=== PATIENT | male | born 1955 | race Caucasian/White ===

== ENCOUNTER 2016-09-20 19:56 | Inpatient (IN) | payer OTHER ==
[2016-09-20] MEDS ORDERED: Sodium Chloride 0.9% 1,000 ML IV ONE ×2 (21:02→22:18)
[2016-09-20] MEDS ORDERED: Pantoprazole 40 MG Vial IVPUSH ONE (21:03)
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
[2016-09-20] MEDS: Sodium Chloride 0.9% 10 ML Syringe FLUSH PRN (21:37)
[2016-09-20] MEDS ORDERED: Diatrizoate Meglumine/Diatrizoate Sodium 37% 120 ML Bottle PO ONE (22:21)
[2016-09-20] MEDS ORDERED: Sodium Chloride 0.9% 10 ML Syringe FLUSH ONE (22:21)
[2016-09-20] MEDS ORDERED: Iopamidol 612 MG/ML 150 ML Bottle IVPUSH ONE (22:21)
[2016-09-21] MEDS ORDERED: metroNIDAZOLE 500 MG Tab PO ONE (00:06)
[2016-09-21] MEDS ORDERED: Levofloxacin/Dextrose 5%-Water 750 MG in Premix Bag 1 BAG IV ONE (00:06)
[2016-09-21] MEDS ORDERED: Furosemide 40 MG/4 ML VIAL IVPUSH ONE (00:27)
[2016-09-21] MEDS ORDERED: Sodium Chloride 0.9% 500 ML IV SCH (01:30)
[2016-09-21] MEDS ORDERED: Furosemide 20 MG/2 ML VIAL IVPUSH ONE (05:15)
[2016-09-21] MEDS: HYDROmorphone 1 MG/ML Syringe IVPUSH PRN ×2 (05:55→17:06)
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
--- NOTE | 2016-09-21 09:49 | CT ---
CT chest Technique: Multiple axial sections through the chest were obtained. Intravenous contrast was utilized. Comparison: No previous CT study is available, previous chest x-ray performed earlier on the same day is available dated 09/20/16 (9:04 PM). Findings: Fractures are identified within the right third through ninth ribs. Ninth rib fracture is fractured in 2 places. Fracture shows mild displacement almost up to 1 rib length with several fractures. No left-sided rib fractures are identified. Moderate sized right sided pleural effusion is seen. Mild atelectasis on a compressive basis is seen adjacent to the pleural effusion. Small hiatal hernia is seen. Left lung is clear. No pneumothorax is identified. Mediastinum and hilar regions show no adenopathy or mass. No pericardial thickening is seen. Small amount of contrast reflux into the distal esophagus is seen. Reconstructed sagittal views show vertebral body heights to be maintained within the thoracic spine. Sagittal views of the sternum appear intact. Mildly displaced fracture seen within the right scapula showing mild displacement. Fracture occurs below the glenoid. Impression: 1. Multiple right-sided rib fractures involving the third through ninth ribs. Ninth rib is fractured in 2 places. 2. Moderate right sided pleural effusion causing mild compressive right sided atelectasis. 3. Mildly displaced scapular fracture on the right side. 4. Other findings felt to be nonacute and incidental as described above. Diagnostic code #3 I agree with preliminary report issued by [employer] (preliminary report dictated on 09/21/16, 12:06 AM Central Time) CT abdomen and pelvis Technique: Multiple axial sections were obtained from above the dome of the diaphragm inferiorly through the pubic symphysis. Intravenous and oral contrast was utilized. Comparison: No previous study. Findings: Liver shows no focal parenchymal abnormality. Spleen appears within normal limits. Adrenal glands show no nodule or mass. Parapelvic cysts are seen within the left kidney. No hydronephrosis or mass seen within the kidneys. Pancreas appears within normal limits. Aorta shows no aneurysmal dilatation. Appendix is seen which is normal. No pelvic mass or adenopathy is seen. Delayed images show contrast within the distal ureters and within the bladder. Preliminary report by [employer] mentions possible right colonic wall thickening which I believe is due to lack of distention. Old bilateral transverse process fractures noted of L3. Mild deformity of the right L4 transverse process is seen. Fracture within the left L4 transverse process is seen which is most likely old. Old pelvic fractures are seen. Orthopedic hardware noted within the pelvis. Reconstructed sagittal views show the vertebral body heights to be maintained within the lumbar spine. Impression: 1. Old appearing transverse process fractures within the lumbar spine. Old pelvic fractures are seen with orthopedic hardware. 2. Other incidental findings. 3. Nothing acute is identified on CT study of the abdomen and pelvis. Diagnostic code #2 I agree with preliminary report issued by [facility] (although I feel previously described colonic wall thickening within the right colon is due to lack of distention rather than representing real disease) (preliminary report dictated on 09/21/16, 12:06 AM Central Time)
--- NOTE | 2016-09-21 09:49 | CR ---
Chest: Two views of the chest were obtained. Comparison: No previous chest x-ray, subsequent chest CT performed later on the same day. Multiple right-sided rib fractures are seen. Pleural effusion noted on the lateral view better seen on CT study. Lungs otherwise are clear. Heart size and mediastinum are normal. Fracture noted within the right scapula. Old left upper rib fracture is seen which is healed. Impression: 1. Multiple right sided rib fractures. Right sided pleural effusion. 2. Right scapular fracture. 3. Old healed left upper rib fracture. Diagnostic code #3
--- NOTE | 2016-09-21 10:41 | PCM.CONSN ---
- General Info Date of Service: 09/21/16 - Patient Data Vitals - most recent: Last Vital Signs Temp 97.9 F 09/21/16 10:08 Pulse 88 09/21/16 10:08 Resp 20 09/21/16 10:08 BP 136/76 09/21/16 10:08 Pulse Ox 96 09/21/16 10:08 Weight - most recent: 97.432 kg I&O - last 24 hours: Intake & Output 09/20/16 09/21/16 09/21/16 23:59 07:59 15:59 Intake Total 150 347 Output Total 1425 Balance -1275 347 Ulices Results last 24 hrs: Microbiology 09/21/16 01:55 Stool for WBCs - Final Stool / Feces NO WBC SEEN Med Orders - Current: Current Medications Hydromorphone HCl (Dilaudid) 1 mg IVPUSH Q4H PRN PRN Reason: Pain Last Admin: 09/21/16 05:55 Dose: 1 mg Sodium Chloride (Normal Saline) 500 mls @ 100 mls/hr IV ASDIRECTED SHAYLA Polyethylene Glycol/Electrolytes (Golytely) 4,000 ml PO ONETIME ONE Stop: 09/21/16 17:01 Sodium Chloride (Saline Flush) 10 ml FLUSH ASDIRECTED PRN PRN Reason: Keep Vein Open Last Admin: 09/20/16 21:37 Dose: 10 ml Discontinued Medications Diatrizoate Meglum/Diatrizoate Sod (Gastrografin 37%) 90 ml PO ONETIME ONE Stop: 09/20/16 22:22 Last Admin: 09/20/16 22:36 Dose: 90 ml Furosemide (Lasix) 20 mg IVPUSH NOW ONE Stop: 09/21/16 00:28 Last Admin: 09/21/16 00:59 Dose: 20 mg Furosemide (Lasix) 20 mg IVPUSH NOW ONE Stop: 09/21/16 05:16 Last Admin: 09/21/16 05:19 Dose: 20 mg Sodium Chloride (Normal Saline) 1,000 mls @ 500 mls/hr IV ONETIME ONE Stop: 09/20/16 23:01 Last Admin: 09/20/16 21:35 Dose: 500 mls/hr Sodium Chloride (Normal Saline) 1,000 mls @ 999 mls/hr IV ONETIME ONE Stop: 09/20/16 23:18 Last Admin: 09/21/16 00:13 Dose: 999 mls/hr Levofloxacin/Dextrose 750 mg/ (Premix) 150 mls @ 100 mls/hr IV ONETIME ONE Stop: 09/21/16 01:35 Last Admin: 09/21/16 00:14 Dose: 100 mls/hr Iopamidol (Isovue-300 (61%)) 150 ml IVPUSH ONETIME ONE Stop: 09/20/16 22:22 Last Admin: 09/20/16 22:37 Dose: 150 ml Metronidazole (Flagyl) 500 mg PO ONETIME ONE Stop: 09/21/16 00:07 Last Admin: 09/21/16 00:16 Dose: 500 mg Pantoprazole Sodium (Protonix Iv) 40 mg IVPUSH ONETIME ONE Stop: 09/20/16 21:04 Last Admin: 09/20/16 21:36 Dose: 40 mg Sodium Chloride (Saline Flush) 10 ml FLUSH ONETIME ONE Stop: 09/20/16 22:22 Last Admin: 09/20/16 22:37 Dose: 10 ml Consult PN Assessment/Plan Procedures: Procedures COMPLETE CBC W/AUTO DIFF WBC (07/26/14) COMPREHEN METABOLIC PANEL (07/26/14) EMERGENCY DEPT VISIT (07/26/14) HELICOBACTER PYLORI ANTIBODY (07/26/14) ROUTINE VENIPUNCTURE (07/26/14) THER/PROPH/DIAG INJ IV PUSH (07/26/14) Problem List Initiated/Reviewed/Updated: Yes My Orders last 24 hours: My Active Orders 09/21/16 10:38 Verify Patient Consent Obtain [RC] ASDIRECTED 09/21/16 17:00 KCl/Na Sulf,Bicarb,Cl/PEG 3351 [GoLytely] 4,000 ml PO ONETIME ONE 09/21/16 Lunch Nothing per Oral After Midnight Diet [DIET] 09/22/16 10:39 Schedule Procedure [COMM] Routine Plan: surgical consult dictated JERRY
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
[2016-09-21] MEDS ORDERED: Polyethylene Glycol/Electrolytes 4,000 ML Bottle PO ONE (17:00)
[2016-09-22] MEDS: HYDROmorphone 1 MG/ML Syringe IVPUSH PRN ×2 (02:58→14:15)
[2016-09-22] MEDS ORDERED: Lidocaine 1% 4 ML ONE (07:14)
[2016-09-22] MEDS ORDERED: fentaNYL 100 MCG/2 ML SDV ONE (07:14)
[2016-09-22] MEDS ORDERED: Propofol 200 MG/20 ML SDV ONE ×2 (07:14→10:03)
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
[2016-09-22] MEDS ORDERED: Midazolam 1 MG/ML 2 ML SDV ONE (09:43)
[2016-09-22] MEDS ORDERED: Lactated Ringers 1,000 ML ONE (09:48)
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
--- NOTE | 2016-09-22 10:12 | PCM.OPNOTE ---
- General Post-Op/Procedure Note Date of Surgery/Procedure: 09/22/16 Operative Procedure(s): egd with bx/colonoscopy Findings: esophageal erosions and thrombosed hemorrhoids Pre Op Diagnosis: GI bleeding Post-Op Diagnosis: Same Anesthesia Technique: MAC Primary Surgeon: Jose Angel Villeda EBL in mLs: 0 Complications: None Condition: Good Free Text/Narrative:: Intake & Output 09/21/16 09/22/16 09/22/16 23:59 07:59 15:59 Intake Total 2354 1999 Output Total 1300 Balance 1054 1999
[2016-09-22] MEDS ORDERED: Ondansetron 4 MG/2 ML SDV IVPUSH PRN (10:14)
--- NOTE | 2016-09-22 13:07 | PCM48HPAN ---
Post Anesthesia Note - EVALUATION WITHIN 48HRS OF ANESTHETIC Vital Signs in Normal Range: Yes Patient Participated in Evaluation: No (visit with nurse) Respiratory Function Stable: Yes Airway Patent: Yes Cardiovascular Function Stable: Yes Hydration Status Stable: Yes Pain Control Satisfactory: Yes Nausea and Vomiting Control Satisfactory: Yes Mental Status Recovered: Yes
--- NOTE | 2016-09-22 14:31 | PCM.POSTAN ---
POST ANESTHESIA ASSESSMENT - MENTAL STATUS Mental Status: alert, oriented - VITAL SIGNS Pulse Rate: 73 SaO2: 100 Resp Rate: 14 Blood Pressure: 132/67 Temperature: 99.8 F - RESPIRATORY Respiratory Status: respiratory rate WNL, airway patent, O2 saturation stable, supplemental oxygen - CARDIOVASCULAR CV Status: pulse rate WNL, blood pressure stable - GASTROINTESTINAL GI Status: no symptoms - PAIN Pain Score: 0 - POST OP HYDRATION Hydration Status: adequate & stable
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
[2016-09-22] MEDS ORDERED: HYDROmorphone 1 MG/ML Syringe IVPUSH ONE (15:44)
--- NOTE | 2016-09-22 16:20 | OR ---
DATE OF OPERATION: 09/22/2016 SURGEON: Jose Angel Villeda MD PREOPERATIVE DIAGNOSIS: Gastrointestinal bleed. POSTOPERATIVE DIAGNOSIS: Gastrointestinal bleed. OPERATION PERFORMED: Colonoscopy to cecum. FINDINGS: Thrombosed hemorrhoid. There were no angiodysplasias, neoplasias, large tumor masses, ulcerations, or diverticulum. ANESTHESIA: Procedure done under IV sedation. DESCRIPTION OF PROCEDURE: The patient having been taken to the endoscopy room, having been connected to monitoring equipment, given IV sedation for upper GI endoscopy, this was continued for colonoscopy. Placed in left lateral position. Perianal area showed a thrombosed hemorrhoid. Rectal exam showed good sphincter tone. Video Olympus colonoscope was introduced into the rectum and threaded up without problem to the cecum, where the appendicular orifice was noted. Unable to cannulate the cecum, but the external orifice of the ileum was unremarkable. Prep was excellent throughout the colon, [place] Cleansing score grade A. The scope was slowly withdrawn showing the cecum, ascending colon, transverse colon, descending colon, sigmoid colon, and rectum. Retroflexed view was done showing some internal hemorrhoids. The patient tolerated the procedure and was sent to recovery room in a stable condition. ESTIMATED BLOOD LOSS: MMODAL /[id number]
--- NOTE | 2016-09-22 16:20 | OR ---
DATE OF OPERATION: 09/22/2016 SURGEON: Jose Angel Villeda MD PREOPERATIVE DIAGNOSIS: Anemia and black tarry stools. POSTOPERATIVE DIAGNOSIS: Anemia and black tarry stools. OPERATION PERFORMED: Esophagogastroduodenoscopy with biopsy. FINDINGS: An incompetent hiatus, GE junction located about 35 cm with the esophageal erosions beginning at 35 cm and extending up to about 30 cm. Biopsies were taken of the GE junction located at 35 cm. Biopsies were also taken at 30 cm and then again at 25 cm. The erosions extended from about GE junction, were located at 35 cm up to about 30 cm. This was in association with an incompetent hiatus and a sliding hiatal hernia. Second portion of the duodenum, duodenal bulb, pyloric channel, antrum, body and cardia of the stomach were unremarkable as was the balance of the esophagus as described. ANESTHESIA: Done under IV sedation. DESCRIPTION OF PROCEDURE: The patient was taken to the endoscopy room, placed in a supine position, connected to monitoring equipment, given IV sedation, and placed in left lateral position. Bite block was inserted and video Olympus gastroscope placed in the posterior oropharynx, under direct vision, threaded past the cricopharyngeus, down the esophagus, and into the stomach. The stomach was insufflated and the scope passed to the second portion of the duodenum. Second portion of the duodenum, duodenal bulb, and pyloric channel were unremarkable. Biopsy of the antrum was performed. The body, cardia, and fundus were unremarkable. J- maneuver showed an incompetent hiatus, sliding hiatal hernia. The scope was withdrawn to the hiatal hernia and pouch up to the GE junction, which was located at 35 cm, and this was biopsied a number of times. Erosions were noted from there up to about 30 cm and biopsies were taken at 30 cm. The rest of the esophagus at 30 cm, appeared to be normal by a random biopsy of the esophagus at 25 cm was performed. 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 The patient tolerated the procedure. Specimen sent to pathology in a labeled container. The patient will continue with IV sedation to undergo colonoscopy. ESTIMATED BLOOD LOSS: MMODAL /[id number]
--- NOTE | 2016-09-22 16:56 | PCM.PRNOTE ---
- Free Text/Narrative Note: DATE OF PROCEDURE: 09/22/2016 PREOPERATIVE DIAGNOSIS: Right Sided Pleural Effusion POSTOPERATIVE DIAGNOSIS: Right Sided Pleural Effusion PROCEDURE PERFORMED: U/S Guided Diagnostic and Therapeutic Right Sided Thoracentesis SURGEON: Charanjit Francis DO DESCRIPTION OF PROCEDURE: After informed consent was obtained, signed, the patient had ultrasound localization in the right hemithorax. The patient was sterilely prepped and topical lidocaine was induced. Stab incision was made and a thoracentesis catheter was inserted and 290 mL of hemorrhagic fluid was obtained without difficulty. Estimated Blood Loss: Minimal The patient tolerated the procedure well w/o any complications. Postprocedure chest x-ray is pending.
--- NOTE | 2016-09-22 17:36 | CR ---
Chest: Portable view of the chest was obtained. Comparison: Previous chest CT of 09/20/16 and chest x-ray of 09/20/16. Heart size and mediastinum are normal. Multiple rib fractures not as well seen on chest x-ray as noted on chest CT. There appears to be diminished pleural effusion on the right side from prior study. No pneumothorax is seen. Lungs are clear. Heart size and mediastinum are within normal limits for portable technique. Impression: 1. Multiple right-sided rib fractures better seen on chest CT. 2. Decreased pleural effusion believed to be present on the right side. No pneumothorax is seen. 3. Chest x-ray is otherwise unremarkable. Diagnostic code #2
[2016-09-22] MEDS: oxyCODONE 5 MG Tab PO PRN (20:12)
[2016-09-23] MEDS: oxyCODONE 5 MG Tab PO PRN ×3 (00:13→12:40)
[2016-09-23] MEDS ORDERED: Pantoprazole 40 MG Tab.CR PO SCH (06:00)
[2016-09-23] MEDS ORDERED: diphenhydrAMINE 50 MG/ML SDV IVPUSH ONE (07:00)
[2016-09-23] MEDS ORDERED: predniSONE 20 MG Tab PO ONE (07:00)
[2016-09-23] MEDS: Sodium Chloride 0.9% 10 ML Syringe FLUSH PRN (08:46)
[2016-09-23] MEDS ORDERED: Iron Sucrose Complex 500 MG in Sodium Chloride 0.9% 250 ML IV ONE (09:00)
--- NOTE | 2016-09-23 10:06 | CT ---
CT chest Technique: Multiple axial sections through the chest were obtained. Intravenous contrast was not utilized. Comparison: Previous chest x-ray of 09/20/16 is available. Findings: Small right sided pleural effusion is seen which has decreased in amount from previous exam. Mediastinum and hilar regions appear within normal limits and stable. No pericardial thickening is seen. Very slight atelectasis noted within the right lung base. Lungs otherwise are clear. Multiple right-sided rib fractures are noted which remain stable. Stable right scapular fracture is seen. No pneumothorax is seen. Impression: 1. Small right sided pleural effusion decreased in amount from prior exam. 2. Mild right basilar atelectasis. 3. Multiple stable right-sided rib fractures are seen as well as stable appearing right scapular fracture. Diagnostic code #3
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
[2016-09-23 14:19] VITALS: BP 152/70
== END 2016-09-23 14:50 | disposition home or self-care (01) | DRG 378 ==
LOC: JD.ED 19:56 → INTOOBSV 09-21 00:28 → OBSVTOIN 09-21 00:28 → JD.MS 09-21 00:28 → JD.OB 09-22 10:12
PROVIDERS: ADMIT Internal Medicine Cardiovascular Disease; ATTEND Internal Medicine Cardiovascular Disease
PROC: 30233N1 Transfusion of Nonautologous Red Blood Cells into Peripheral Vein, Percutaneous Approach (ICD-10-PCS; 2016-09-21)
PROC: 0DB48ZX Excision of Esophagogastric Junction, Via Natural or Artificial Opening Endoscopic, Diagnostic (ICD-10-PCS; principal; 2016-09-22)
PROC: 0DJD8ZZ Inspection of Lower Intestinal Tract, Via Natural or Artificial Opening Endoscopic (ICD-10-PCS; 2016-09-22)
PROC: 0W993ZZ Drainage of Right Pleural Cavity, Percutaneous Approach (ICD-10-PCS; 2016-09-22)
DX: K92.2 Gastrointestinal hemorrhage, unspecified (principal); J90 Pleural effusion, not elsewhere classified; S22.31XA Fracture of one rib, right side, initial encounter for closed fracture; R55 Syncope and collapse; D50.0 Iron deficiency anemia secondary to blood loss (chronic); T39.315A Adverse effect of propionic acid derivatives, initial encounter; V29.9XXA Motorcycle rider (driver) (passenger) injured in unspecified traffic accident, initial encounter; Z79.899 Other long term (current) drug therapy; K44.9 Diaphragmatic hernia without obstruction or gangrene; K64.5 Perianal venous thrombosis; S42.101A Fracture of unspecified part of scapula, right shoulder, initial encounter for closed fracture; K20.9 Esophagitis, unspecified
CPT/HCPCS: 00810; 36415; 36430; 71010; 71010-26; 71020; 71020-26; 71250; 71250-26; 71260; 71260-26; 74177; 74177-26; 76942; 80048; 80053; 80306; 81001; 82042; 82945; 83615; 83690; 83986; 84157; 84484; 85014; 85018; 85025; 86140; 86850; 86900; 86901; 86922; 87015; 87046; 87070; 87102; 87116; 87205; 87206; 87220; 88112; 88112-26; 88305; 88305-26; 89050; 89055; 93005; 96361; 96365; 96375; 99285; 99285-25; A9270-GY; C9113; G0480; J1170; J1200; J1756; J1940; J1956; J2250; J2704; J3010; J7040; J7050; J7120; P9016; Q9963; Q9967